=== PATIENT | male | born 1970 | race African-American/Black ===

== ENCOUNTER 2019-11-25 17:13 | Emergency (ER) | payer BC ==
[~2019-11-25] VITALS: Ht 190.5 cm; Wt 97.5 kg
[2019-11-25 17:22] VITALS: BP 111/61; Ht 190.5 cm; Wt 97.5 kg
== END 2019-11-25 19:21 | disposition home or self-care (01) ==
LOC: ED 17:13
DX: S61.212A Laceration without foreign body of right middle finger without damage to nail, initial encounter (principal); V49.9XXA Car occupant (driver) (passenger) injured in unspecified traffic accident, initial encounter; Y93.89 Activity, other specified; Y92.89 Other specified places as the place of occurrence of the external cause; Y99.8 Other external cause status
CPT/HCPCS: 90715; J2001